=== PATIENT | male | born 1965 | race Caucasian/White ===

== ENCOUNTER 2017-09-13 17:52 | Emergency (ER) | payer OTHER ==
[2017-09-13 18:01] VITALS: BP 132/78
--- NOTE | 2017-09-13 19:24 | ED Physician Documentation ---
History of Present Illness - Stated complaint Stated Complaint: FLU LIKE SYMPTOMS - Chief complaint Chief Complaint: General - History obtained from History obtained from: Patient - History of Present Illness Timing: How many days ago (2-3) Pain level max: 3 Pain level now: 2 Improved by: rest Worsened by: movement, breathing - Additonal information Additional information: Patient states cough, congestion, fever, chills for the past few days. Not taking anything at home. Concerned he may have the flu. Review of Systems Ten Systems: 10 systems reviewed and negative Constitutional: reports: Fever, Chills Respiratory: reports: Cough GI: denies: Abdominal Pain, Nausea, Vomiting, Diarrhea Skin: denies: Rash Musculoskeletal: denies: Neck pain, Back pain Neurologic: denies: Headache PD PAST MEDICAL HISTORY - Past Medical History Past Medical History: No - Past Surgical History Past Surgical History: No - Present Medications Home Medications: Ambulatory Orders Medication Instructions Recorded Confirmed Albuterol Sulf [Ventolin Hfa 1 - 2 puffs INH Q4HR PRN #1 inhaler 09/13/17 Inhaler] Benzonatate [Tessalon Perle] 100 - 200 mg PO TID PRN #30 capsule 09/13/17 - Allergies Allergies/Adverse Reactions: Allergies Allergy/AdvReac Type Severity Reaction Status Date / Time No Known Drug Allergies Allergy Verified 09/13/17 18:02 - Social History Does the pt smoke?: No Smoking Status: Never smoker Does the pt drink ETOH?: Yes ETOH Use: Wine Does the pt have substance abuse?: Yes Substance Use and Type: Marijuana - Immunizations Immunizations are current?: Yes - POLST Patient has POLST: No PD ED PE NORMAL - Vitals Vital signs reviewed: Yes - General General: Alert and oriented X 3, No acute distress, Well developed/nourished - HEENT HEENT: PERRL, Ears normal, Moist mucous membranes, Pharynx benign - Neck Neck: Supple, no meningeal sign - Cardiac Cardiac: RRR, Strong equal pulses - Respiratory Respiratory: No respiratory distress, Other (Mild wheezing, Diminished breath sounds bilaterally) - Abdomen Abdomen: Soft, Non tender, Non distended - Derm Derm: Warm and dry, No rash - Neuro Neuro: Alert and oriented X 3 - Psych Psych: Normal mood, Normal affect Results - Vitals Vitals: Vital Signs - 24 hr 03/04/18 17:56 Temperature 36.8 C Heart Rate 86 Respiratory 16 Rate Blood Pressure 132/78 H O2 Saturation 97 - Labs Labs: Laboratory Tests 09/13/17 18:00 Influenza A (Rapid) POSITIVE H Influenza B (Rapid) Negative Influenza Types A,B Ag + H PD MEDICAL DECISION MAKING - ED course Complexity details: reviewed results, re-evaluated patient, considered differential, d/w patient, d/w family ED course: Patient is a 52-year-old gentleman who presents to the emergency department with fevers cough and body aches for the past 2-3 days. Is positive for influenza. Attempted to have him stay for a breathing treatment, but he did not want to do this and was quite upset in the emergency department. Instead we will prescribe him cough medication and inhaler for home. We discussed the limited potential benefits of Tamiflu at his stage in the disease versus the risks of taking Tamiflu and he declines this at this time. I think this is reasonable. Patient and family counseled regarding signs and symptoms for which I believe and urgent re-evaluation would be necessary. Patient with good understanding of and agreement to plan and is comfortable going home at this time This document was made in part using voice recognition software. While efforts are made to proofread this document, sound alike and grammatical errors may occur. Departure - Departure Disposition: 01 Home, Self Care Clinical Impression: Influenza A Condition: Good Instructions: ED Flu Follow-Up: your,doctor in 1 week [Other] Prescriptions: Albuterol Sulf [Ventolin Hfa Inhaler] 1 - 2 puffs INH Q4HR PRN #1 inhaler PRN Reason: Shortness Of Air/Wheezing Benzonatate [Tessalon Perle] 100 - 200 mg PO TID PRN #30 capsule PRN Reason: Cough Comments: Drink plenty of fluids at home and return if you worsen. Discharge Date/Time: 09/13/17 19:55
[2017-09-13] MEDS ORDERED: ALBUTEROL NEB 2.5 MG/3 ML INH STA (19:34)
== END 2017-09-13 19:55 | disposition home or self-care (01) ==
LOC: ED 17:52
DX: J10.1 Influenza due to other identified influenza virus with other respiratory manifestations (principal)
CPT/HCPCS: 87275; 87276; 99283